=== PATIENT | female | born 1990 | race Hispanic/Latino ===

== ENCOUNTER 2016-11-19 04:37 | Emergency (ER) | payer MEDICAID, OTHER ==
[~2016-11-19] VITALS: Ht 154.9 cm; Wt 95.0 kg
[~2016-11-19 04:37] MED LIST: LABE200T PO; OXYC1TAB24 PO
[2016-11-19 04:40] VITALS: BP 144/104; PULSE 79; RESP 18; O2SAT 97
--- NOTE | 2016-11-19 05:01 | ED.REPORT ---
HPI-Head Prob / Injury Date of Service Nov 19, 2016 ED Provider: Doc Torres MD Patient is a 26 year old female who presents to the ED with left sided facial pain after she was hit with baseball 3 days ago. Patient states that she was out playing a family a family game of baseball and she ran out to prevent her child from getting hit. She was struck by a baseball and knocked to the ground. Patient denies loss of consciousness or sustaining any other injuries. She reports associated swelling and states that her muscles on this side of the face are twitching. She reports difficulty opening her jaw fully and she cannot chew properly. Nursing Notes Stated Complaint: L SIDE FACIAL,JAW PAIN Chief Complaint: Head, Face, Neck Trauma Nursing Notes Reviewed: Yes Allergies: Coded Allergies: No Known Allergies (Verified , 11/19/16) Scheduled Labetalol (Labetalol) 200 Mg Tablet 200 MG PO BID Scheduled PRN oxyCODONE-Acetaminophen 5-325 mg (oxyCODONE-Acetaminophen 5-325 mg) 1 Each Tablet 1-2 TAB PO Q6H PRN PRN For Pain General Time Seen by Provider: 05:02 Chief Complaint Blunt head trauma Hx Obtained From: Patient Arrived By: Walk-in Onset Occurred: 3 days ago Symptom Duration: Since onset Context: Occurred at: Sports field Quality: Painful Severity: Current: Moderate Severity: Maximum: Moderate Recent Healthcare: No recent doctor visit, No recent hospitalization Similar Sx Previous: No Past Medical History Past Medical History Diabetes Mellitus - diet controlled Hypertension migraines hypertension Past Surgical History Reports: , Cholecystectomy Family History Noncontributory Smoking History Never Smoker Social History Alcohol Use: Denies alcohol use Drug Use: Denies drug use Other Social History: Good social support, , Lives with children, Local resident Ambulatory Status Independent Review of Systems Review of Systems Note: + left jaw pain and swelling Musculoskeletal: Denies: Extremity pain, Joint pain Neurologic: Reports: Headache, Denies: Change LOC Complete sys rev & neg: except as marked. Physical Exam Initial Vital Signs Vital Signs (First) Date Time Temp Pulse Resp B/P Pulse Ox O2 Delivery O2 Flow Rate FiO2 11/19/16 04:40 36.7 79 18 144/104 97 Room Air Initial VS: Reviewed, Vital signs abnormal Skin: Warm, Dry, No cyanosis Psychiatric: Mood/affect normal, Behavior normal, Normal thought content General/Constitutional: Awake, Alert, No acute distress Head / Eyes: Normocephalic, PERRL, Conjunctiva NL zygomatic arch is nontender. ENT: Airway patent Left Ear / Mastoid: Positive: Tympanic membrane red, Negative: Mastoid area red, Mastoid area tender, Tympanic membrane bulging Trismus of the jaw, will not open beyond 1.5cm. Left TMJ and masseter muscle pain. No witt sign. Neck: Supple, Full range of motion Neurologic: Oriented X3, Speech NL, No motor deficits, No sensory deficits, CN II - XII intact Respiratory / Chest: No respiratory distress, No stridor Cardiovascular: Heart rate NL, Regular rhythm Upper Extremity / MS: No deformity, Neurologic intact, Vascular intact Lower Extremity / Pelvis / MS: No deformity, Neurologic intact, Vascular intact Interpretation & Diagnostics X-Ray Interpretation Xray Interpretation: Impression: No acute fracture. Study Performed: XR Facial Bones Interpretation / Wet Read by: Wet read ED physician Re-Eval/Medical Decision Med Decision/Clinical Course 26-year-old female who was hit in the left side of her face by a baseball 2 days ago. She now has increasing pain with muscle spasm on the left side of her face and inability to open her jaw. There is no crepitus. X-ray is normal. Suspect traumatic TMJ dysfunction and masseter spasm. Occult fracture is still a possibility and should be considered for persistent pain. Source of Hx: Old records Re-Evaluation/Progress : Time of Eval: 05:45 Patient Status: Condition improved Re-Evaluation/Progress Note: X-ray was negative. Patient understands and agrees with the plan to be discharged home. Discharge instructions and follow-up discussed. All questions were addressed. Return to the ED warnings given. Counseled Regarding: Diagnosis, Need for follow-up, When/why to return to ED Discharge & Departure Primary Impression: Temporomandibular joint (TMJ) pain Additional Impression: Struck by other hit or thrown ball, initial encounter Disposition: Home All VS Reviewed: Yes Condition: Stable Patient Instructions: Temporomandibular Disorder (ED) Additional Instructions: You have inflammation of the left TMJ joint and some associated jaw muscle spasm. No evidence of fracture. Tylenol and/or ibuprofen as needed for pain. Follow-up with her regular doctor if the pain persists. Referrals: Sara Huang MD (PCP) Scribe Attestation Portions of this note were transcribed by Eloisa Jones. I, Dr. Torres, personally performed the history, physical exam and medical decision-making; I reviewed and confirmed the accuracy of the information in the transcribed note. Signed by: Jose Carlos Moon, 11/19/2016 0546 copies to: Sara Huang MD, Howard L MD Nov 19, 2016 05:01 Eloisa Jones Nov 19, 2016 05:11
[2016-11-19 05:56] VITALS: BP 140/90; PULSE 80; RESP 16; O2SAT 98
--- NOTE | 2016-11-19 08:17 | DRSVH ---
PROCEDURE: X-RAY FACIAL BONES COMPLETE, MINIMUM THREE VIEWS ([id number]) INDICATIONS: hit with baseball. TECHNIQUE: 3 views of the facial bones were acquired. COMPARISON: None. FINDINGS: Sinuses: Visualized sinuses demonstrate no air-fluid levels or mucosal thickening. Bones: No fractures. No suspicious bony lesions. Orbital rims and zygomatic arches appear intact. Soft tissues: No suspicious soft tissue densities. IMPRESSION: No acute radiographic findings. If there is high clinical suspicion for occult facial in jury, maxillofacial CT is recommended. Dictated by: Alize Shepherd M.D. on 11/19/2016 at 8:15 Approved by: Alize Shepherd M.D. on 11/19/2016 at 8:15
== END 2016-11-19 05:58 | disposition home or self-care (01) ==
LOC: SED 04:37
DX: M26.629 Arthralgia of temporomandibular joint, unspecified side (principal); R51 Headache; W21.03XA Struck by baseball, initial encounter; Y93.64 Activity, baseball; Y92.328 Other athletic field as the place of occurrence of the external cause; Y99.8 Other external cause status; E11.9 Type 2 diabetes mellitus without complications; I10 Essential (primary) hypertension

== ENCOUNTER 2016-12-01 18:53 | Emergency (ER) | payer OTHER ==
[~2016-12-01] VITALS: Ht 154.9 cm; Wt 43.2 kg
[2016-12-01 19:03] VITALS: BP 140/92; PULSE 122; RESP 18; O2SAT 98
--- NOTE | 2016-12-01 19:51 | ED.REPORT ---
HPI-General Illness Date of Service Dec 01, 2016 ED Provider: Dr. Mike Babcock MD A 26 year old female with a history of hypertension, diabetes, and migraines presents to the ED complaining of a fever that began 2 days ago. Associated symptoms include chills, headache, myalgias, decreased appetite, cough, sore throat, left sided pain, vomiting and nasal congestion. Symptoms have become progressively since onset. She states that when she coughs, her chest feels like "pins and needles". Patient took Tylenol 30 minutes prior to arrival with little relief. She took Excedrin for her headache with no relief. Patient was seen in the ED on 11/19 for TMJ joint pain; she was discharged in good condition. Nursing Notes Stated Complaint: HEAD PAIN/FEVER Chief Complaint: FLU/Cold Symptoms Nursing Notes Reviewed: Yes Allergies: Coded Allergies: No Known Allergies (Verified , 11/19/16) Scheduled Cephalexin (Cephalexin) 500 Mg Capsule 500 MG PO TID Labetalol (Labetalol) 200 Mg Tablet 200 MG PO BID Oseltamivir Phosphate (Tamiflu) 75 Mg Capsule 75 MG PO BID Scheduled PRN Ondansetron ODT (Zofran ODT) 4 Mg Tablet 4 MG PO Q4H PRN PRN For Nausea oxyCODONE-Acetaminophen 5-325 mg (oxyCODONE-Acetaminophen 5-325 mg) 1 Each Tablet 1-2 TAB PO Q6H PRN PRN For Pain General Time Seen by MD: 19:51 Chief Complaint Fever Hx Obtained From: Patient Arrived By: Walk-in Sudden in Onset?: No Onset Occurred: 2 days ago Symptom Duration: Since onset Location: : Head Quality: Aching Radiation: : Does not radiate Severity: Current: Mild Severity: Maximum: Moderate Associated with: Reports: Abdominal pain (Left sided pain), Cough, Fever, Headache, Nasal discharge, Vomiting Pertinent Negative: Pt denies other symptoms Recent Healthcare: No recent doctor visit, Recent hospitalization Past Medical History Past Medical History Notes: PCP: Dr. Sara Ferrer Past Medical History Diabetes Mellitus - diet controlled Hypertension Chronic Migraines Past Surgical History Reports: , Cholecystectomy Family History Reports: Hypertension Smoking History Never Smoker Social History Alcohol Use: Denies alcohol use Drug Use: Denies drug use Other Social History: Good social support, , Lives with children, Local resident Ambulatory Status Independent Review of Systems Decreased appetite Full Review of Systems Constitutional: Reports: Chills, Fever Ears / Nose / Throat: Reports: Nasal congestion, Sore throat Respiratory: Reports: Non-productive cough, Denies: Shortness of breath GI: Reports: Abdominal pain (Left sided pain), Vomiting Musculoskeletal: Reports: Myalgia Neurologic: Reports: Headache, Denies: Change LOC Complete sys rev & neg: except as marked. Physical Exam Vital Signs Vital Signs Date Time Temp Pulse Resp B/P Pulse Ox O2 Delivery O2 Flow Rate FiO2 12/01/16 22:14 37.1 95 16 111/69 97 Room Air 12/01/16 19:03 38.1 122 18 140/92 98 Room Air Initial VS: Reviewed Extremities: Vascular intact, Neuro intact, No swelling, No tenderness Neurologic: Alert, Oriented, Nonfocal Psychiatric: Mood/affect normal, Behavior normal, Normal thought content General/Constitutional: Awake, Alert Head / Eyes: Atraumatic, Normocephalic, PERRL ENT: Atraumatic, Airway patent, Mucous membranes moist, Tympanic membs NL, Ext aud canal NL Neck: Atraumatic, Supple Soft Tissue Neck: Positive: Cervical adenopathy L..., Cervical adenopathy R... Respiratory / Chest: Atraumatic, Breath sounds NL, Breath sounds = bilat Cardiovascular: Heart rate NL, Regular rhythm, Heart sounds NL, No gallop, No murmurs, No rubs Abdomen: Atraumatic, Soft, BS normoactive Back: Atraumatic Flank / Spine / Paraspinal: Positive: Flank tender L BACK: CVAT Skin: Atraumatic Color / Condition: Positive: Diaphoresis present SKIN: Flushed Interpretation & Diagnostics Lab Results Interpretation Result Diagram: 12/01/16202412/01/162024 Test 12/01/16 19:40 12/01/16 20:25 12/01/16 20:35 12/01/16 21:25 Hold Purple Top Tube Received (Received) Hold Blue Top Tube Received (Received) Hold Red Top Tube Received (Received) Hold [place] Top Tube Received (Received) White Blood Count 14.6th/mm3 (3.8-10.1) Red Blood Count 4.51mil/mm3 (3.90-5.20) Hemoglobin 11.9g/dL (12.0-15.6) Hematocrit 36.3% (35.0-46.0) Mean Corpuscular Volume 80.5fL (81-100) Mean Corpuscular Hemoglobin 26.4pg (27.0-35.0) Mean Corpuscular Hemoglobin Concent 32.8% (32.0-37.0) Red Cell Distribution Width 15.5% (12.3-15.4) Platelet Count 272bil/L (150-400) Neutrophils (%) (Auto) 72.3% (40-74) Lymphocytes (%) (Auto) 18.2% (14-46) Monocytes (%) (Auto) 8.1% (4-12) Eosinophils (%) (Auto) 1.0% (0-5) Basophils (%) (Auto) 0.1% (0-3) Sodium Level 137mEq/L (134-144) Potassium Level 3.5mEq/L (3.5-5.2) Chloride Level 98mEq/L (97-108) Carbon Dioxide Level 23mmol/L (18-29) Blood Urea Nitrogen 11mg/dL (6-20) Creatinine 0.78mg/dL (0.57-1.00) Estimat Glomerular Filtration Rate 127mL/min (>59) Glucose Level 95mg/dL (60-99) Calcium Level 9.6mg/dL (8.5-10.1) Total Bilirubin 0.2mg/dL (0.0-1.2) Aspartate Amino Transf (AST/SGOT) 20U/L (0-50) Alanine Aminotransferase (ALT/SGPT) 29U/L (0-32) Alkaline Phosphatase 85U/L (25-150) Total Protein 8.1g/dL (6.4-8.4) Albumin 4.0g/dL (3.4-5.0) Lactic Acid Level 0.7mmol/L (0.4-2.0) Urine Color Dark yellow (YELLOW) Urine Appearance Hazy (CLEAR,HAZY) Urine pH 6.0 (5.0-8.0) Urine Specific [place] 1.020 (1.003-1.035) Urine Protein Tracemg/dL (NEG,TRACE) Urine Glucose (UA) Negativemg/dL (NEGATIVE) Urine Ketones Tracemg/dL (NEGATIVE) Urine Occult Blood Small (NEGATIVE) Urine Nitrite Negative (NEGATIVE) Urine Bilirubin Small (NEGATIVE) Urine Ictotest Positive (Negative) Urine Urobilinogen Normalmg/dL (NORMAL) Urine Leukocyte Esterase Negative (NEGATIVE) Urine RBC 3-10/hpf (0-2) Urine WBC 6-10/hpf (0-5) Urine Epithelial Cells Few/hpf (NONE-MOD) Urine Crystals None seen (NONE SEEN) Urine Bacteria None/hpf (NONE-FEW) Urine Hyaline Casts None/lpf (NONE) Urine Granular Casts None seen (NONE SEEN) Urine Waxy Casts None seen (NONE SEEN) Urine Red Blood Cell Casts None seen (NONE SEEN) Urine White Blood Cell Casts None seen (NONE SEEN) Urine Mucus None seen (None Seen) Urine Trichomonas None seen (NONE SEEN) Urine Yeast None (NONE SEEN) Urine Culture Reflexed Indicated Lab Results Interpretation: Influenza: Negative for A and B X-Ray Chest Interpretation Chest Xray Interpretation: IMPRESSION: No acute cardiopulmonary disease. Dictated by: Austin Herbert M.D. on 12/01/2016 at 20:46 Interpretation / Wet Read by: Interpret - Radiologist Re-Eval/Medical Decision Time of Eval: 22:55 Patient Status: Condition improved Re-Evaluation/Progress Note: Patient is rechecked. She is informed of her lab results, X-ray results and intended treatment plan. All questions are addressed. She understands and agrees with the plan to discharge. Counseled Regarding: Diagnosis, Lab results, Need for follow-up, When/why to return to ED Discharge & Departure Primary Impression: Pyelonephritis Additional Impression: Influenza Disposition: Home Discharge Condition All VS Reviewed: Yes Condition: Stable Patient Instructions: Acute Pyelonephritis (ED), Influenza (ED) Additional Instructions: Emergency Department evaluation included, examination, labs and chest x-ray. 3 of fever generalized pain headaches and respiratory symptoms is very suggestive of influenza in spite of a negative flu screen. After discussion, we have elected to start Tamiflu based on a strong suspicion of influenza. This is twice a day for 5 days. Left flank tenderness and evidence of infection on urinalysis as concern for a kidney infection. (Pyelonephritis) we have also started antibiotics to treat that, IV antibiotics were given in the emergency department at home take cephalexin 500 mg 3 times a day for 9 days. Ibuprofen 600 mg every 6-8 hours as needed for pain and fever, ondansetron as needed for nausea and vomiting. Rest and get adequate fluids. Return to emergency department if getting worse. On Sunday, call for urine culture results, may stop cephalexin if urine culture is negative. Follow up with primary care next week. Return to emergency department for inability breathing uncontrolled pain or uncontrolled vomiting or if getting worse in any other way. Referrals: Sara Huang MD (PCP) Scribe Attestation Portions of this note were transcribed by Ngozi Ríos. I, Dr. Babcock personally performed the history, physical exam and medical decision-making; I reviewed and confirmed the accuracy of the information in the transcribed note. Signed by: Jose Carlos Pleitez, 12/01/16 2300. copies to: Sara Huang MD, Donald L MD Dec 01, 2016 19:51 NGOZI RÍOS Dec 01, 2016 20:29
[2016-12-01] MEDS ORDERED: Ondansetron 2 mg/mL 2 mL Inj IVPUSH ONE (20:20)
[2016-12-01] MEDS ORDERED: 0.9% Sodium Chloride 1,000 ML IV ONE (20:20)
[2016-12-01 20:30] LABS: BASOPHILS % (AUTO) 0.1 % (0-3); MONOCYTES % (AUTO) 8.1 % (4-12); Mean Corpuscular Hemoglobin 26.4 pg (27.0-35.0); Mean Corpuscular Volume 80.5 fL (81-100); NEUTROPHILS % (AUTO) 72.3 % (40-74); Platelet Count 272 bil/L (150-400)
--- NOTE | 2016-12-01 20:53 | DRSVH ---
PROCEDURE: X-RAY CHEST ONE VIEW, PORTABLE ([id number]) INDICATIONS: 26 year-old female with fever and cough. TECHNIQUE: One view of the chest was acquired. COMPARISON: [facility], CR, CHEST 2VW, 11/18/2014, 12:41. [facility], CR, CH EST 2VW, 07/24/2014, 20:42. [facility], CR, CHEST 1VW (PORTABLE), 10/15/2012, 22:07. FINDINGS: Surgical changes and devices: Cholecystectomy clips are present. Lungs and pleura: No pleural effusions or pneumothorax. Lungs are clear. Mediastinum: Mediastinal contours appear normal. Heart size is normal. Bones and chest wall: No suspicious bony lesions. Overlying soft tissues appear unremarkable. IMPRESSION: No acute cardiopulmonary disease. Dictated by: Austin Herbert M.D. on 12/01/2016 at 20:46 Approved by: Austin Herbert M.D. on 12/01/2016 at 20:47
[2016-12-01 22:14] VITALS: BP 111/69; PULSE 95; RESP 16; O2SAT 97
[2016-12-01 22:34] LABS: APPEARANCE,URINE HAZY (CLEAR,HAZY); COLOR,URINE DARK YELLOW (YELLOW)
[2016-12-01 22:35] LABS: ICTOTEST,URINE POSITIVE (Negative); OCCULT BLOOD,URINE SMALL (NEGATIVE); UROBILINOGEN,URINE NORMAL (NORMAL)
[2016-12-01] MEDS ORDERED: cefTRIAXone Inj 2,000 MG in Dextrose 5% Minibag Plus 50 ML IV ONE (22:45)
[2016-12-01] MEDS ORDERED: _Ondansetron ODT 4 mg Tablet PO PRN (23:00)
[2016-12-01] MEDS ORDERED: TAM75UDCAP PO (23:06)
[2016-12-01] MEDS ORDERED: ONDA4TAB9 PO (23:06)
[2016-12-01] MEDS ORDERED: CEPH500C PO (23:06)
[2016-12-01 23:36] VITALS: BP 111/69; PULSE 95; RESP 16; O2SAT 97
== END 2016-12-01 23:37 | disposition home or self-care (01) ==
LOC: SED 19:46
DX: N12 Tubulo-interstitial nephritis, not specified as acute or chronic (principal); J11.1 Influenza due to unidentified influenza virus with other respiratory manifestations; R05 Cough; J02.9 Acute pharyngitis, unspecified; R09.81 Nasal congestion; E11.9 Type 2 diabetes mellitus without complications; I10 Essential (primary) hypertension
CPT/HCPCS: 36415; 71010; 80053; 81000; 81025; 83605; 85025; 87086; 87088; 87804; 96361; 96365; 96375; 99285; J0696; J2405; J7030

== ENCOUNTER 2016-12-26 17:45 | Emergency (ER) | payer OTHER ==
[~2016-12-26] VITALS: Ht 154.9 cm; Wt 90.0 kg
[~2016-12-26 17:45] MED LIST changes: +CEPH500C PO; +ONDA4TAB9 PO; +TAM75UDCAP PO
[2016-12-26 17:52] VITALS: BP 141/95; PULSE 85; RESP 16; O2SAT 99
--- NOTE | 2016-12-26 18:32 | ED.REPORT ---
HPI-Trauma Minor / Fall Date of Service Dec 26, 2016 ED Provider: Jennyfer Vee History of Present Illness: on the roof getting a dahiana doll, fall off roof of one story house around 2 pm today landing on concrete on right hip. rolled to get up went to furniture and was able to stand. . Can walk but it hurts. pain went from hip to back and down leg. 8/10 pain, no nausea, no loc. head hit shrub. rhea is primary care at residency clinic. reached to straighten ladder and rolled off the roof Nursing Notes Stated Complaint: FELL OFF ROOF OF HOUSE, HIP PAIN Chief Complaint: Multiple Trauma/Fall Nursing Notes Reviewed: Yes Allergies: Coded Allergies: No Known Allergies (Verified , 12/26/16) Scheduled Cephalexin (Cephalexin) 500 Mg Capsule 500 MG PO TID Labetalol (Labetalol) 200 Mg Tablet 200 MG PO BID Oseltamivir Phosphate (Tamiflu) 75 Mg Capsule 75 MG PO BID Scheduled PRN Ondansetron ODT (Zofran ODT) 4 Mg Tablet 4 MG PO Q4H PRN PRN For Nausea oxyCODONE-Acetaminophen 5-325 mg (oxyCODONE-Acetaminophen 5-325 mg) 1 Each Tablet 1-2 TAB PO Q6H PRN PRN For Pain General Time Seen by MD: 18:31 Chief Complaint Fall Hx Obtained From: Patient Onset Occurred: 5 - 8 hours ago Symptom Duration: Since onset Caused by: Fall from height... (6-10 feet) Severity: Current: Pain level 8 out of 10 Past Medical History Past Medical History Notes: PCP: Dr. Sara Ferrer Past Medical History Diabetes Mellitus - diet controlled Hypertension Chronic Migraines Denies: Asthma Past Surgical History Reports: (times 3), Cholecystectomy Family History Reports: Hypertension Smoking History Never Smoker Social History Alcohol Use: "Social" Drug Use: Denies drug use Other Social History: Good social support, , Lives with children, Local resident Occupation lives with family, no work or school 12/26/2016 Ambulatory Status Independent Review of Systems Basic Review of Systems Cardiovascular: No chest pain, No dyspnea on exertion, No orthopnea, No parox noct dyspnea, No palpitations Allergy / Immune: No allergy Psychiatric: Normal thought content Physical Exam Initial Vital Signs Vital Signs (First) Date Time Temp Pulse Resp B/P Pulse Ox O2 Delivery O2 Flow Rate FiO2 12/26/16 17:52 36.6 85 16 141/95 99 Room Air Initial VS: Reviewed, Vital signs normal Head / Eyes: Atraumatic, Normocephalic, PERRL ENT: Mucous membranes moist, Conjunctiva normal, No scleral icterus Respiratory: Breath sounds normal, Clear to auscultation, No respiratory distress Cardiovascular: Regular rate & rhythm, Heart sounds normal, Intact distal pulses Abdomen / GI: Soft, Non-tender, No guarding, No rebound, No distention Back: No CVA tenderness Lymphatic: No lymphadenopathy Extremities: Vascular intact, Neuro intact, No swelling, No tenderness Skin: Warm, Dry, No cyanosis Neurologic: Alert, Oriented, Nonfocal Psychiatric: Mood/affect normal, Behavior normal, Normal thought content General/Constitutional: Awake, Alert, No acute distress, Well appearing, Well developed, Well hydrated, Well nourished, Cooperative, Not toxic appearing Neck: Atraumatic, Supple, No meningismus, Full range of motion, No adenopathy ENT: Atraumatic, Airway patent, Mucous membranes moist, Pharynx NL Respiratory / Chest: Atraumatic, Breath sounds NL, Breath sounds = bilat, No respiratory distress Cardiovascular: Heart rate NL, Regular rhythm, Heart sounds NL, No gallop, No murmurs, No rubs Abdomen: Atraumatic, Soft, Non-tender, McBurney's non-tender Back: Atraumatic, Inspection NL, Full range of motion, Painless range of motion Lower Extremity / Pelvis / MS: Atraumatic, Inspection NL, Full range of motion , No swelling patient intially states she fell landing on right hip but then states she landed on her right buttocks. Exam does not show any ecchymosis, skin is intact. patient with diffuse pain to the lightest touch. Interpretation & Diagnostics Interpretation & Diagnostics: DICATIONS: fall TECHNIQUE: 3 views of the lumbar spine were acquired. COMPARISON: None. FINDINGS: Bones: 5 [id number] vertebrae are present. There is normal bony alignment. No vertebral body compression fractures. No suspicious bony lesions. Soft tissues: Overlying bowel gas pattern is normal. No suspicious soft tissue calcifications. IMPRESSION: No acute wedge compression deformities. Lab Results Interpretation Result Diagram: 12/26/160 12/26/164 Test 2/28/17 19:24 12/26/16 19:40 White Blood Count 9.6th/mm3 (3.8-10.1) Red Blood Count 4.52mil/mm3 (3.90-5.20) Mean Corpuscular Volume 81.6fL (81-100) Mean Corpuscular Hemoglobin 26.3pg (27.0-35.0) Mean Corpuscular Hemoglobin Concent 32.2% (32.0-37.0) Red Cell Distribution Width 16.0% (12.3-15.4) Platelet Count 325bil/L (150-400) Neutrophils (%) (Auto) 53.1% (40-74) Lymphocytes (%) (Auto) 37.2% (14-46) Monocytes (%) (Auto) 7.0% (4-12) Eosinophils (%) (Auto) 2.1% (0-5) Basophils (%) (Auto) 0.2% (0-3) Prothrombin Time 11.7sec (8.1-12.5) Prothromb Time International Ratio 1.09ratio Activated Partial Thromboplast Time 30.4sec (22.8-33.0) Sodium Level 136mEq/L (134-144) Potassium Level 4.0mEq/L (3.5-5.2) Chloride Level 102mEq/L (97-108) Carbon Dioxide Level 24mmol/L (18-29) Blood Urea Nitrogen 14mg/dL (6-20) Creatinine 0.63mg/dL (0.57-1.00) Estimat Glomerular Filtration Rate 162mL/min (>59) Glucose Level 90mg/dL (60-99) Calcium Level 9.1mg/dL (8.5-10.1) Total Bilirubin 0.2mg/dL (0.0-1.2) Aspartate Amino Transf (AST/SGOT) 16U/L (0-50) Alanine Aminotransferase (ALT/SGPT) 14U/L (0-32) Alkaline Phosphatase 85U/L (25-150) Total Protein 7.3g/dL (6.4-8.4) Albumin 4.2g/dL (3.4-5.0) Human Chorionic Gonadotropin, Qual Negative (Negative) Hold [place] Top Tube Received (Received) Hemoglobin 11.6g/dL (12.0-15.6) Hematocrit 36.1% (35.0-46.0) X-Ray Interpretation Xray Interpretation: PROCEDURE: X-RAY PELVIS W/LAT HIP (RT) ([id number]) INDICATIONS: fall TECHNIQUE: AP pelvis with lateral view(s) of the right hip(s). COMPARISON: None. FINDINGS: Bones: No fractures or dislocations. Pelvic ring appears intact. No suspicious bony lesions. Soft tissues: The visualized bowel gas pattern is normal. No suspicious soft tissue calcifications. IMPRESSION: No acute radiographic findings. If pain persists, repeat study in 5-7 days is recommended to exclude occult fracture. Re-Eval/Medical Decision Med Decision/Clinical Course 26 year old female presents for evualation after fall off a roof. Patient drove herself to the ER even remembering to bring her favorite blanket. X-rays of the hip and back are negative. EKG is normal. Labs are normal. Repeat H and H are normal. Exam does not reaval any sign of ecchymosis, skin injury or signs of trauma. No sign of compartment syndrome, ecchymosis or hematoma formation. Patient walking without difficulty Discharge & Departure Impression: Primary Impression: Right low back pain Chronicity: acute Additional Impression: Fall from roof Encounter type: initial encounter Qualified Code: W13.2XXA - Fall from, out of or through roof, initial encounter Disposition: Home Patient Instructions: Acute Low Back Pain (ED), Fall Prevention for Older Adults (GEN) Additional Instructions: Do Not Climb on the roof! The x-ray of your hip and pelvis are normal. No sign of bony damage. The x-ray of back is normal, no sign of fracture. Your EKG is normal. The H and H and the repeat H and H are normal, that means no sign of internal bleeding. Your CBC is normal. Your chemistry is normal. Your INR is normal. You can expect to have more pain tomorrow morning. You need to continue with movement. Use ice to the area of greatest pain. Do gentle walking. Do not stay in bed or sit in a chair for an extended period of time. You can use hydrocodone 1 at night as needed for severe unrelenting pain. Use ibuprofen 800 mg 3 times a day. Please follwo with primary care for a recheck in 7 to 10 days. Referrals: [facility] EDSupervising Provider for APC: You Soto MD copies to: [facility] Jennyfer Vee Dec 26, 2016 18:32
--- NOTE | 2016-12-26 19:13 | DRSVH ---
PROCEDURE: X-RAY PELVIS W/LAT HIP (RT) ([id number]) INDICATIONS: fall TECHNIQUE: AP pelvis with lateral view(s) of the right hip(s). COMPARISON: None. FINDINGS: Bones: No fractures or dislocations. Pelvic ring appears intact. No suspicious bony lesions. Soft tissues: The visualized bowel gas pattern is normal. No suspicious soft tissue calcifications. IMPRESSION: No acute radiographic findings. If pain persists, repeat study in 5-7 days is recommende d to exclude occult fracture. Dictated by: Alize Shepherd M.D. on 12/26/2016 at 19:10 Approved by: Alize Shepherd M.D. on 12/26/2016 at 19:11
--- NOTE | 2016-12-26 19:14 | DRSVH ---
PROCEDURE: X-RAY LUMBAR SPINE, 2 OR 3 VIEW INDICATIONS: fall TECHNIQUE: 3 views of the lumbar spine were acquired. COMPARISON: None. FINDINGS: Bones: 5 [id number] vertebrae are present. There is normal bony alignment. No vertebral body c ompression fractures. No suspicious bony lesions. Soft tissues: Overlying bowel gas pattern is normal. No suspicious soft tissue calcifications. IMPRESSION: No acute wedge compression deformities. Dictated by: Alize Shepherd M.D. on 12/26/2016 at 19:11 Approved by: Alize Shepherd M.D. on 12/26/2016 at 19:11
[2016-12-26] MEDS ORDERED: Ketorolac 30 mg/mL 2 mL Inj IM ONE (19:15)
[2016-12-26 19:45] LABS: BASOPHILS % (AUTO) 0.2 % (0-3); EOSINOPHILS % (AUTO) 2.1 % (0-5); Mean Corpuscular Hemoglobin 26.3 pg (27.0-35.0); Mean Corpuscular Volume 81.6 fL (81-100); NEUTROPHILS % (AUTO) 53.1 % (40-74); Platelet Count 325 bil/L (150-400)
[2016-12-26 19:59] LABS: INR 1.09 ratio
[2016-12-26] MEDS ORDERED: _HYDROcodone/APAP 5-325 mg Tablet PO PRN (20:05)
[2016-12-26 20:27] VITALS: BP 235/85; PULSE 85; RESP 12; O2SAT 100
== END 2016-12-26 20:28 | disposition home or self-care (01) ==
LOC: SED 17:45
DX: M54.5 Low back pain (principal); W13.2XXA Fall from, out of or through roof, initial encounter; Y93.89 Activity, other specified; Y92.89 Other specified places as the place of occurrence of the external cause; Y99.8 Other external cause status; I10 Essential (primary) hypertension; E11.9 Type 2 diabetes mellitus without complications
CPT/HCPCS: 36415; 72100; 73501; 80053; 84703; 85014; 85018; 85025; 85610; 85730; 86850; 93005; 96372; 99284; J1885